=== PATIENT | male | born 1980 | race Two or more races ===

== ENCOUNTER 2019-08-19 09:36 | Emergency (ER) | payer OTHER ==
[~2019-08-19] VITALS: Ht 185.4 cm; Wt 72.4 kg
[2019-08-19 09:59] VITALS: BP 124/76
--- NOTE | 2019-08-19 10:08 | NUR ---
PT HERE WITH C/O RIGHT SIDED DENTAL/FACIAL/JAW PAIN X 1 YEAR, WORSE OVER THE PAST WEEK.
[2019-08-19] MEDS ORDERED: HYDROcodone/APAP 5/325 TABLET ONE (10:16)
--- NOTE | 2019-08-19 10:20 | NUR ---
PT MEDICATED PER ORDERS.
--- NOTE | 2019-08-19 10:21 | NUR ---
Patient/Caregiver given discharge instructions and they have confirmed that they understand the instructions. Patient ambulatory with steady gait.
[2019-08-19] MEDS ORDERED: HYDROcodone/APAP 5/325 TABLET PO ONE (10:30)
== END 2019-08-19 10:43 | disposition home or self-care (01) ==
LOC: ED 10:30
DX: K04.7 Periapical abscess without sinus (principal); H92.01 Otalgia, right ear; R51 Headache
CPT/HCPCS: 99283